=== PATIENT | female | born 1960 | race Two or more races ===

== ENCOUNTER 2017-11-04 07:10 | Day surgery (SDC) | payer OTHER ==
[2017-11-01 15:31] VITALS: BMI 25.5
--- NOTE | 2017-11-01 16:14 | HP ---
Admitting History and Physical - Primary Care Physician PCP: Raven Jack - Admission Chief Complaint: Left breast radial scar History of Present Illness: 56 year old postmenapausal female with screening mammogram showing 7mm spiculated mass in central left breast 07/2017. US showed .8 cm mass at 11: 00. Stereotacttic core biopsy was done since poor visualization under US. 2016 stereotactic core bx showed radial sclerosing radial scar. The clip was displaced aprox 6 mm on the post bx image. Excision recommended. History Source: Patient Limitations to Obtaining History: No Limitations - Past Medical History Cardiovascular: Yes: HTN, Hyperlipdemia Endocrine: Yes: Hypothyroidism, Osteopenia (osteoporosis) - Past Surgical History Past Surgical History: Yes: - Smoking History Smoking history: Never smoked Have you smoked in the past 12 months: No - Alcohol/Substance Use Hx Alcohol Use: No Home Medications - Allergies Allergies/Adverse Reactions: Allergies Allergy/AdvReac Type Severity Reaction Status Date / Time No Known Allergies Allergy Verified 11/01/17 15:17 - Home Medications Home Medications: Ambulatory Orders Amoxicillin - [Amoxicillin 500mg Capsule -] 500 mg PO BID 11/01/17 Aspirin [Aspirin EC] 81 mg PO DAILY 11/01/17 Levothyroxine [Synthroid -] 75 mcg PO DAILY 11/01/17 Losartan Potassium 10 mg PO HS 11/01/17 Family Disease History - Family Disease History Family Disease History: CA: Grandparent (pat GF renal ca 70) Physical Examination Constitutional: Yes: Well Nourished Breast(s): Yes: Other (symetrical no palpable masses or adenopathy bilaterally post bx changes left breast) Assessment/Plan Left breast wide excision with mammogram needle localization
[2017-11-04] MEDS ORDERED: LIDOCAINE HCL/PF 2% SDV 5ML VIAL ONE (09:46)
[2017-11-04] MEDS ORDERED: MIDAZOLAM HCL 2 MG/2 ML SINGLE DOSE VIAL ONE (09:46)
[2017-11-04] MEDS ORDERED: PROPOFOL 20 ML ONE (09:46)
[2017-11-04] MEDS ORDERED: BUPIVACAINE HCL/PF 2.5 MG/ML - 30 ML VIAL IJ ONE (09:53)
[2017-11-04] MEDS ORDERED: LIDOCAINE HCL 1%, 10 MG/ML (20ML VIAL) ONE (09:53)
[2017-11-04] MEDS ORDERED: GUM MASTIC/STORAX/MSAL/ALCOHOL 1 DRP DROPSBTL MC ONE (09:53)
[2017-11-04] MEDS ORDERED: ONDANSETRON 4 MG/2 ML VIAL IVPUSH PRN ×2 (09:59→11:39)
[2017-11-04] MEDS ORDERED: KETOROLAC TROMETHAMINE 30 MG/1 ML VIAL IVPUSH PRN (09:59)
[2017-11-04] MEDS ORDERED: DEXTROSE 5%-0.45% SALINE 1,000 ML IV SCH (10:00)
[2017-11-04] MEDS ORDERED: ceFAZolin SODIUM 1 GM VIAL ONE (10:06)
[2017-11-04] MEDS ORDERED: SODIUM CHLORIDE 0.9% P/F 10 ML VIAL IJ ONE (10:06)
[2017-11-04] MEDS ORDERED: DEXAMETHASONE SOD PHOSPHATE 4 MG/1 ML VIAL ONE (10:09)
[2017-11-04] MEDS ORDERED: BUPIVACAINE HCL/PF 0.25% (2.5MG/ML) 10 ML VIAL IJ ONE (11:09)
[2017-11-04] MEDS ORDERED: PROMETHAZINE HCL 25 MG/1 ML VIAL IVPB PRN (11:39)
[2017-11-04] MEDS ORDERED: LACTATED RINGERS SOLUTION 1,000 ML IV SCH (11:45)
[2017-11-04 13:24] VITALS: TEMP 98
[2017-11-04 15:19] VITALS: BP 110/59; PULSE 78
--- NOTE | 2017-11-06 14:56 | OP ---
DATE OF OPERATION: 11/04/2017 PREOPERATIVE DIAGNOSIS: Left breast radial scar. POSTOPERATIVE DIAGNOSIS: Left breast radial scar. PROCEDURE PERFORMED: Left breast wide excision. SURGEON: Breanna Jack MD BLOW PIT OPERATOR: AYO Andre ANESTHESIA: General. ANESTHESIOLOGIST: SPECIMEN: Left breast tissue and additional margins. ESTIMATED BLOOD LOSS: Minimal. DRAINS: None. INDICATIONS FOR PROCEDURE: The patient is a 57-year-old woman who had a mammogram that showed suspicious findings. Biopsy showed a radial scar. Excision was recommended. The procedure and risks were discussed with her prior to surgery. DESCRIPTION OF PROCEDURE: The patient was identified in the holding area. Informed consent was obtained. The left breast was identified with a marker. Prior to surgery she went to breast imaging, where she underwent localization of the clip in the left breast. She was taken to the operating room and placed on the operating table in the supine position. Sequential compression devices were placed on both legs. She received antibiotics prior to surgery. The left breast was prepped and draped in the usual fashion. The localizing wire was seen exiting from the upper inner quadrant of the left breast. An incision was made at the superior border of the areola. The incision was deepened until the breast parenchyma was exposed. The tip of the needle was identified and the tissue around the needle tip was mobilized with electrocautery. Once it was completely mobilized, the needle was disassembled and the specimen was removed. It was labeled with silk sutures. A specimen radiograph did not show the clip. Additional tissue was then taken from the medial, anterior and inferior portions of the excision cavity. The radiograph of the inferior specimen showed the clip. All specimens were labeled with silk sutures. They were all placed in formalin and sent to Pathology. The wound was irrigated and inspected for hemostasis. Once hemostasis was satisfactory, the incision was closed. The skin was infiltrated with 0.25% Marcaine. The deep tissue was closed with interrupted sutures of 2% plain. The dermis was closed with interrupted sutures of 3-0 Vicryl, and the skin was closed with a running subcuticular closure of 4-0 Monocryl. The wound was cleaned and dressed with a sterile gauze dressing. The patient tolerated the procedure well. At the end of the procedure, all sponge, lap and instrument counts were correct. She was taken to the PACU in satisfactory condition. BREANNA JACK M.D. MARK/[id number] MTDD
--- NOTE | 2017-11-09 15:37 | PATH ---
Surgical Pathology Report Patient Name: YOVANY MARINELLI Med. Rec. #: [id number] /Age/Gender: 1960 (Age: 57) / F Account: [id number] Location: [facility] AMBULATORY Taken: 11/04/2017 Received: 11/04/2017 Reported: 11/09/2017 Physicians: Raven Jack M.D. Specimen(s) Received A: LEFT BREAST PARTIAL MASTECTOMY B: LEFT BREAST MEDIAL MARGIN C: LEFT BREAST ANTERIOR MARGIN D: LEFT BREAST INFERIOR MARGIN Clinical History Radial scar (clip in specimen #4) Final Diagnosis A. BREAST, LEFT, PARTIAL MASTECTOMY: BENIGN BREAST TISSUE SHOWING PROLIFERATIVE FIBROCYSTIC CHANGES INCLUDING USUAL DUCTAL HYPERPLASIA (UDH), CYSTIC APOCRINE METAPLASIA AND STROMAL FIBROSIS. PRIOR BIOPSY SITE CHANGES ARE PRESENT. B. BREAST, LEFT, MEDIAL MARGIN, EXCISION: BENIGN BREAST TISSUE. C. BREAST, LEFT, ANTERIOR MARGIN, EXCISION: BENIGN BREAST TISSUE. D. BREAST, LEFT, INFERIOR MARGIN, EXCISION: BENIGN BREAST TISSUE SHOWING RADIAL SCAR AND PROLIFERATIVE FIBROCYSTIC CHANGES INCLUDING USUAL DUCTAL HYPERPLASIA (UDH) AND CYSTIC APOCRINE METAPLASIA. PRIOR BIOPSY SITE CHANGES ARE PRESENT. Electronically Signed Vicky Puente M.D. Gross Description A. Received in formalin, labeled "left breast partial mastectomy," is a 5.0 x 3.1 x 1.8 cm. sauceda-yellow, irregular, portion of fibroadipose tissue with a short suture marking the superior aspect and a long suture marking the lateral aspect of the specimen, per the surgeon. There is no needle localization wire present. There is no skin present. The specimen is inked as follows: superior and lateral blue; inferior green; medial yellow; anterior red; deep black. The specimen is serially sectioned from superior to inferior. Sectioning reveals a 1.5 x 0.8 x 0.8 cm focus of firm fibrous tissue abutting the deep and medial margins. The remaining breast parenchyma is unremarkable. The specimen is entirely and sequentially submitted from superior to inferior in 10 cassettes with the superior margin cassette 1, inferior margin in cassette 10 and the firm focus of fibrous tissue in cassettes 5-7. Time to formalin fixation: 21 minutes Total formalin fixation time: Approximately 31 hours. B. Received in formalin labeled "left breast medial margin," is a 3.5 x 3.2 x 0.9 cm irregular portion of fibroadipose tissue with a suture marking the biopsy cavity side, per the surgeon. The new margin is inked blue and the specimen is serially sectioned. The specimen is entirely and sequentially submitted in 4 cassettes. C. Received in formalin labeled "left breast anterior margin," is a 2.5 x 1.7 x 0.7 cm irregular portion of fibroadipose tissue with a suture marking the biopsy cavity side, per the surgeon. The new margin is inked blue and the specimen is serially sectioned. The specimen is entirely submitted in 2 cassettes. D. Received in formalin labeled "left breast inferior margin," is a 4.4 x 3.0 x 0.9 cm irregular portion of fibroadipose tissue with a suture marking the biopsy cavity side, per the surgeon. The new margin is inked blue and the specimen is serially sectioned. The specimen is entirely and sequentially submitted in 6 cassettes. 11/05/2017 [facility]11/05/2017
== END 2017-11-04 14:15 | disposition home or self-care (01) ==
LOC: FASU 07:10
PROVIDERS: ATTEND Surgery
PROC: 0HBU0ZZ Excision of Left Breast, Open Approach (ICD-10-PCS; principal; 2017-11-04 10:14)
DX: N60.32 Fibrosclerosis of left breast (principal); N64.89 Other specified disorders of breast; I10 Essential (primary) hypertension; E78.5 Hyperlipidemia, unspecified; E03.9 Hypothyroidism, unspecified; M81.0 Age-related osteoporosis without current pathological fracture
CPT/HCPCS: 19281; 88307-TC; 94760